=== PATIENT | female | born 1990 ===

== ENCOUNTER 2019-02-03 23:09 | Emergency (ER) | payer OTHER ==
[2019-02-03] MEDS ORDERED: Albuterol-Ipratrop 3 mg / 0.5 (3 ml) UD IH SCH (23:45)
[2019-02-03] MEDS ORDERED: Albuterol-Ipratrop 3 mg / 0.5 (3 ml) UD ONE (23:46)
[2019-02-03] MEDS ORDERED: Dexamethasone 4 mg/1 ml IM STA ×2 (23:46→23:53)
[2019-02-04] MEDS ORDERED: DiphenhydrAMINE 12.5 mg/5 ml LIQ UD (5 ml) PO STA (00:11)
[2019-02-04] MEDS ORDERED: DiphenhydrAMINE 12.5 mg/5 ml LIQ UD (5 ml) ONE (00:15)
[2019-02-04 00:22] VITALS: O2SAT 97
[2019-02-04] MEDS ORDERED: Albuterol 0.083% Inhal Sol (2.5 mg/3 mL) UD ONE (00:49)
--- NOTE | 2019-02-04 00:53 | C.PDOC ---
History Of Present Illness 28 year old female presents to the ED c/o SOB, wheezing and chest tightness that started at 22:00. Patient was seen today at an Urgent Care for same presentation and was given one duoneb and steroid injection. Patient reports she had no nebulizer or inhaler at home to use. Patient denies fever, chill, URI symptoms, palpitations, weakness, numbness, rash, recent travel, sick contacts. Time Seen by Provider: 02/03/19 23:45 Chief Complaint (Nursing): Respiratory Distress History Per: Patient History/Exam Limitations: no limitations Onset/Duration Of Symptoms: Hrs Current Symptoms Are (Timing): Still Present Sick Contacts (Context): None Associated Symptoms: Cough. denies: Fever, Vomiting, Diarrhea Ear Symptoms: Bilateral: None Recent travel outside of the [place]: No Additional History Per: Patient Past Medical History Reviewed: Historical Data, Nursing Documentation, Vital Signs Vital Signs: Last Vital Signs Temp 97.3 F L 02/03/19 23:29 Pulse 123 H 02/03/19 23:29 Resp 20 02/04/19 00:20 BP 148/95 H 02/03/19 23:29 Pulse Ox 97 02/04/19 00:20 - Medical History PMH: Asthma Surgical History: No Surg Hx Family History: States: Unknown Family Hx - Social History Hx Alcohol Use: No Hx Substance Use: Yes - Immunization History Hx Tetanus Toxoid Vaccination: No Hx Influenza Vaccination: No Hx Pneumococcal Vaccination: No Review Of Systems Constitutional: Negative for: Fever, Chills ENT: Negative for: Nose Discharge, Nose Congestion, Throat Pain Cardiovascular: Positive for: Chest Pain. Negative for: Palpitations Respiratory: Positive for: Cough, Shortness of Breath, Wheezing. Negative for: Sputum Gastrointestinal: Negative for: Nausea, Vomiting, Abdominal Pain Skin: Negative for: Rash Neurological: Negative for: Weakness, Numbness, Headache, Dizziness Physical Exam - Physical Exam Appears: Non-toxic, No Acute Distress Skin: Normal Color, Warm, Dry Head: Atraumatic, Normacephalic Eye(s): bilateral: Normal Inspection Ear(s): Bilateral: Normal Oral Mucosa: Moist Throat: Normal, No Erythema, No Exudate Neck: Normal ROM, Supple Chest: Symmetrical Cardiovascular: Rhythm Regular Respiratory: Decreased Breath Sounds, No Rales, No Rhonchi, Wheezing (scattered expiratory), Other (no retractions) Gastrointestinal/Abdominal: Soft, No Tenderness, No Guarding, No Rebound Extremity: Normal ROM, No Tenderness, No Swelling Neurological/Psych: Oriented x3, Normal Speech, Normal Cognition Gait: Steady ED Course And Treatment O2 Sat by Pulse Oximetry: 97 (ON RA) Pulse Ox Interpretation: Normal Progress Note: Plan: - Duoneb x 3. - Decadron 8 mg IM. - Decadron 10 mg IM. - Benadryl 25 mg PO. Patient still hypoxic despite treatment however lungs and breath sounds much improved. Patient will be given another duoneb and reevaluated again. On reevaluation patient has improved pulse ox and in NARD, stable for discharge. Patient was advised to follow up with PMD for further evaluation. Disposition Counseled Patient/Family Regarding: Diagnosis, Need For Followup - Disposition Disposition: HOME/ ROUTINE Disposition Time: 00:48 Condition: STABLE Additional Instructions: Please follow up with PMD Take medications as directed / Have them filled today Return to ER if worse Instructions: Asthma, Adult (DC) Forms: [employer] (Slovenian) - Clinical Impression Clinical Impression: Exacerbation of asthma - PA / STRUCTURAL ANALYST / Resident Statement MD/DO has reviewed & agrees with the documentation as recorded. - Scribe Statement The provider has reviewed the documentation as recorded by the Scribe Jony Yi All medical record entries made by the Nigelibe were at my direction and personally dictated by me. I have reviewed the chart and agree that the record accurately reflects my personal performance of the history, physical exam, medical decision making, and the department course for this patient. I have also personally directed, reviewed, and agree with the discharge instructions and disposition.
[2019-02-04] MEDS ORDERED: Albuterol-Ipratrop 3 mg / 0.5 (3 ml) UD ONE (00:56)
[2019-02-04 01:53] VITALS: BP 133/81; PULSE 130; RESP 18; TEMP 98
== END 2019-02-04 03:05 | disposition home or self-care (01) ==
LOC: C.ER 23:09
DX: J45.901 Unspecified asthma with (acute) exacerbation (principal)
CPT/HCPCS: 94150; 96372; 99284; J1100